=== PATIENT | female | born 1980 | race Two or more races ===

== ENCOUNTER 2016-08-26 18:08 | Emergency (ER) | payer MEDICAID ==
[~2016-08-26] VITALS: Ht 160 cm; Wt 105.2 kg
[~2016-08-26 18:08] MED LIST: CALC-649; FERR27TA; PREN1TAB49
[2016-08-26 18:31] VITALS: Ht 160 cm; Wt 105.2 kg
[2016-08-26] MEDS ORDERED: CYCL-319 PO (19:05)
[2016-08-26] MEDS ORDERED: HYDR-906 PO (19:05)
[2016-08-26] MEDS ORDERED: IBUP-1542 PO (19:05)
--- NOTE | 2016-08-26 19:11 | ERD ---
ER Documentation Chief Complaint Date/Time DATE: 08/26/16 TIME: 19:08 Chief Complaint headache x 3 days HPI 35-year-old female presents here in emergency department for complaints of left- sided neck pain, lower back of the head pain for 3 days. Patient described the pain as sharp pain, 6/10 scale, radiates from the base of the head of the left side, radiates the left lower neck area, accompanied with muscle spasms, worse upon movement. Patient took some ibuprofen which helped with the pain. She denies any numbness or tingling. Patient denies any trauma and affected area. Patient denies any focal weakness, numbness or tingling. Patient denies any blurry vision, changes in balance or memory. Patient denies any head injury. Patient denies any dizziness. ROS All systems reviewed and are negative except as per history of present illness. Medications Home Meds Active Scripts Cyclobenzaprine Hcl* (Cyclobenzaprine Hcl*) 10 Mg Tablet, 10 MG PO TID, #15 TAB Prov:TINA [employer] GENERAL MANAGER 08/26/16 Ibuprofen* (Motrin*) 600 Mg Tab, 600 MG PO Q6H Y for PAIN AND OR ELEVATED TEMP, #30 TAB Prov:TINA [employer] GENERAL MANAGER 08/26/16 Hydrocodone/Acetaminophen ([place] 5-325 Tablet) 1 Each Tablet, 1 TAB PO Q6H Y for SEVERE PAIN LEVEL 7-10, #20 TAB Prov:TINA [employer] GENERAL MANAGER 08/26/16 Reported Medications Calcium Carbonate (Calcium) 1 Tab Tablet 08/06/10 Ferrous Sulfate (Iron) 1 Tab Tablet 08/06/10 Vits W-Ca,Fe,Fa(<1MG) () 1 Tab Tablet 08/06/10 Allergies Allergies: Coded Allergies: No Known Allergy (Verified , 08/26/16) PMhx/Soc Medical and Surgical Hx: pt denies Medical Hx, pt denies Surgical Hx FmHx Family History: No coronary disease, No diabetes, No other Physical Exam Vitals Vital Signs Date Time Temp Pulse Resp B/P Pulse Ox O2 Delivery O2 Flow Rate FiO2 08/26/16 18:31 98.0 81 18 176/81 99 Physical Exam GENERAL: The patient is well developed and appropriate for usual state of health, in no apparent distress. CHEST: Clear to auscultation bilaterally. There are no rales, wheezes or rhonchi. HEART: Regular rate and rhythm. No murmurs, clicks, rubs or gallops. No S3 or S4. ABDOMEN: Soft, nontender and nondistended. Good bowel sounds. No rebound or guarding. No gross peritonitis. No gross organomegaly or masses. No Gan sign or McBurney point tenderness. BACK: No midline or flank tenderness. Noted muscle spasms on the left paraspinal aspect of the cervical spine, on the sternocleidomastoid area. EXTREMITIES: Equal pulses bilaterally. There is no peripheral clubbing, cyanosis or edema. No focal swelling or erythema. Full range of motion. Grossly neurovascularly intact. NEURO: Alert and oriented. Cranial nerves 2-12 intact. Motor strength in all 4 extremities with 5/5 strength. Sensation grossly intact. Normal speech and gait. Negative Romberg sign. Negative pronator 2. Bilateral eyes are PERRLA. EOM intact. SKIN: There is no apparent rash or petechia. The skin is warm and dry. HEMATOLOGIC AND LYMPHATIC: There is no evidence of excessive bruising or lymphedema. No gross cervical, axillary, or inguinal lymphadenopathy. Procedures/MDM Medical Decision Making: Patient's symptoms of headache that is consistent with tension headache, neck pain most likely consistent with a neck muscle strain. Low suspicion for any fractures. No suspicion for neurovascular compromise. There is low suspicion for neurological emergencies at this time since patients neurologic exam is normal. Patient did not have any altered level consciousness , vomiting, changes in balance or memory and did not have any head injury. CT scan of the brain or any radiology exam is not indicated at this time. Patient was given for ibuprofen, [place], Flexeril, advised to apply warm compresses on affected area, patient was advised to follow-up with primary doctor in 2-3 days for reevaluation of symptoms. Patient is advised to return to emergency department for any worsening symptoms. Departure Diagnosis: Primary Impression: Neck strain Encounter type: initial encounter Qualified Code: S16.1XXA - Neck strain, initial encounter Additional Impression: Headache Headache type: tension-type Headache chronicity pattern: acute headache Intractability: not intractable Qualified Code: G44.209 - Acute non intractable tension-type headache Condition: Stable Patient Instructions: Self-Care for Headaches, Neck Sprain/Strain CUISIA,TINA CARLTON T. [employer] GENERAL MANAGER Aug 26, 2016 19:10
== END 2016-08-26 19:02 | disposition home or self-care (01) ==
LOC: E/R 18:08
DX: S16.1XXA Strain of muscle, fascia and tendon at neck level, initial encounter (principal); G44.209 Tension-type headache, unspecified, not intractable; X58.XXXA Exposure to other specified factors, initial encounter; Y92.9 Unspecified place or not applicable
CPT/HCPCS: 99282